=== PATIENT | male | born 1945 | race Caucasian/White ===

== ENCOUNTER → 2017-05-26 | Outpatient (CLI) | payer OTHER ==
[~2017-05-26] MED LIST: IBUP600T26 PO; MULT-65 PO; TAMS0.4C67 PO; XANA0.5T
--- NOTE | 2017-05-30 09:32 | RSPPFT ---
DATE OF PROCEDURE: 05/26/17 COMMENTS: The forced vital capacity shows a small reduction. The FEV1 and FEF 25-75 both show a small reduction with no significant improvement after bronchodilator. The FEV1/FVC ratio is normal. The total lung capacity is normal with a mild increase in the residual volume and an increased RV/TLC ratio. IMPRESSION: This is compatible with mild, large and small airways, irreversible, obstructive lung disease.
== END ==
LOC: HRSP 08:48
PROVIDERS: ATTEND Family Medicine
DX: R06.02 Shortness of breath (principal)
CPT/HCPCS: 36600; 82805; 94060; 94726; 94729